=== PATIENT | female | born 1995 | race African-American/Black ===

== ENCOUNTER 2016-12-10 22:36 | Emergency (ER) | payer MEDICAID | END 2016-12-10 23:49 | disposition home or self-care (01) | LOC: D.ER 22:36 | DX: S60.041A Contusion of right ring finger without damage to nail, initial encounter (principal); W22.8XXA Striking against or struck by other objects, initial encounter; Y93.89 Activity, other specified; Y92.019 Unspecified place in single-family (private) house as the place of occurrence of the external cause ==

== ENCOUNTER 2016-12-22 02:46 | Emergency (ER) | payer MEDICAID | END 2016-12-22 05:00 | disposition home or self-care (01) | LOC: D.ER 02:46 | DX: B34.9 Viral infection, unspecified (principal); I10 Essential (primary) hypertension; F32.9 Major depressive disorder, single episode, unspecified ==

== ENCOUNTER 2017-01-02 23:11 | Emergency (ER) | payer MEDICAID | END 2017-01-03 00:39 | disposition home or self-care (01) | LOC: D.ER 23:11 | DX: S60.417A Abrasion of left little finger, initial encounter (principal); W22.8XXA Striking against or struck by other objects, initial encounter; Y93.89 Activity, other specified; Y92.019 Unspecified place in single-family (private) house as the place of occurrence of the external cause; F32.9 Major depressive disorder, single episode, unspecified; I10 Essential (primary) hypertension ==

== ENCOUNTER 2017-01-19 17:01 | Emergency (ER) | payer MEDICAID | END 2017-01-19 20:59 | disposition home or self-care (01) | LOC: D.ER 17:01 | DX: J06.9 Acute upper respiratory infection, unspecified (principal); J20.9 Acute bronchitis, unspecified; J01.90 Acute sinusitis, unspecified; F17.200 Nicotine dependence, unspecified, uncomplicated; I10 Essential (primary) hypertension ==

== ENCOUNTER 2017-02-17 18:35 | Emergency (ER) | payer MEDICAID | END 2017-02-17 21:15 | disposition home or self-care (01) | LOC: D.ER 18:35 | DX: S09.90XA Unspecified injury of head, initial encounter (principal); Y04.2XXA Assault by strike against or bumped into by another person, initial encounter; Y93.89 Activity, other specified; Y92.89 Other specified places as the place of occurrence of the external cause; F17.200 Nicotine dependence, unspecified, uncomplicated; I10 Essential (primary) hypertension ==